=== PATIENT | female | born 1995 | race Two or more races ===

== ENCOUNTER 2020-05-01 11:39 | Emergency (ER) | payer OTHER ==
[~2020-05-01] VITALS: Ht 157.5 cm; Wt 50.0 kg
[2020-05-01 12:24] LABS: BASO % 0.5 % (0.0-1.0); EOS % 0.7 % (0.0-3.0); HEMATOCRIT 36.9 % (36.0-47.0); HEMOGLOBIN 12.2 g/dl (12.0-15.5); LYMPH # 2.1 10^3/uL (1.5-5.0); LYMPH % 36.5 % (24.0-44.0); MEAN CORPUSCULAR HGB CONC 33.1 g/dl (32.0-36.5); MEAN CORPUSCULAR VOLUME 84.6 fl (80.0-96.0); MONO # 0.3 10^3/uL (0.0-0.8); MONO % 5.8 % (0.0-5.0); NEUTROPHILS # 3.2 10^3/uL (1.5-8.5); NEUTROPHILS % 56.3 % (36.0-66.0); PLATELET COUNT, AUTOMATED 217 10^3/uL (150-450); RED BLOOD COUNT 4.36 10^6/uL (4.00-5.40); WHITE BLOOD COUNT 5.7 10^3/uL (4.0-10.0)
[2020-05-01] MEDS ORDERED: NS 1,000 ML IV ONE (12:45)
[2020-05-01 13:46] LABS: MONO SCRN NEGATIVE (NEGATIVE)
--- NOTE | 2020-05-01 14:25 | REP ---
Clinical: Cough . Comparison: None . Findings: The mediastinum and cardiac silhouette are stable and within normal limits for portable technique. The lung britt are clear without acute consolidation, effusion, or pneumothorax. Skeletal structures are intact. Impression: No acute cardiopulmonary process appreciated. Electronically Signed by Timothy Abrams MD 05/01/2020 02:16 P
[2020-05-01 15:33] VITALS: BP 105/66
--- NOTE | 2020-05-02 07:59 | ECGEPIP ---
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
[2020-06-26 13:36] LABS: EBV AB TO NUCLEAR ANTIGEN SEE SEPARATE REPORT; EBV VIRAL CAPSID AG IgG SEE SEPARATE REPORT; EBV VIRAL CAPSID AG IgM SEE SEPARATE REPORT
== END 2020-05-01 15:35 | disposition home or self-care (01) ==
LOC: M ED 11:39
DX: R42 Dizziness and giddiness (principal); R53.83 Other fatigue